=== PATIENT | female | born 1970 | race Caucasian/White ===

== ENCOUNTER → 2016-08-25 | Outpatient (CLI) | payer BC | END | disposition home or self-care (01) | LOC: LABWHC1 09:31 | PROVIDERS: ATTEND Family Medicine | DX: I10 Essential (primary) hypertension (principal) | CPT/HCPCS: 82384 ==

== ENCOUNTER → 2017-06-20 | Outpatient (CLI) | payer SELFPAY | END | disposition home or self-care (01) | LOC: MMGSC 12:26 | PROVIDERS: ATTEND Family Medicine | DX: E55.9 Vitamin D deficiency, unspecified (principal) | CPT/HCPCS: 36415; 82306 ==

== ENCOUNTER → 2018-07-13 | Outpatient (CLI) | payer BC ==
--- NOTE | 2018-07-13 16:31 | CONS ---
CONSULTATION DATE OF SERVICE: 07/13/2018 This patient is a 48-year-old lady who has been evaluated in the sleep center for significant excessive daytime sleepiness. Gary Sleepiness Scale is 15. HISTORY OF PRESENT ILLNESS/SLEEP-WAKE EVALUATION: Patient's usual sleep schedule is from 11 p.m. to 6 a.m., basically 7 days a week. No problems with falling asleep, although she has a TV set in the bedroom. She usually sleeps on the side position. According to the patient, she does not snore and she wakes up from sleep maybe once with nocturia. She feels significantly sleepy during the day. She wakes up tired, has problems with memory, concentration and anxiety. She takes naps several times during the day, and after naps she still feels tired and exhausted. No history of hypnagogic hallucinations, sleep paralysis or cataplexy. Usually no dreaming during the naps. Her past medical history is positive for Jam's thyroiditis, thyroidism, hypertension, Raynaud phenomenon, episodes of anxiety, fibromyalgia, occipital nerve damage, increasing weight by about 15 pounds for the last few years and about 30 pounds over the last 5 years. MEDICATIONS: 1. Levothyroxine. 2. Metoprolol. 3. Verapamil. SOCIAL HISTORY: Negative for smoking or using alcohol. FAMILY HISTORY: Positive for Clark syndrome in her mother, hyperlipidemia in her mother, lung and heart problems in her grandmother and grandfather. REVIEW OF SYSTEMS: Menstrual periods are regular. Sleepiness during the day. PHYSICAL EXAMINATION: GENERAL: A pleasant lady without distress. VITAL SIGNS: BP 108/79, HR 65, RR 16, height 5 feet 4 inches, weight 170.4 pounds, body mass index 29.1, temperature 98.4, oxygen saturation at room air 97%. HEENT: PERRLA, EOMI. Evaluation of oropharynx showed tongue protrudes midline. Retrognathia 3 mm. Extremely low position of soft palate. Mallampati III-IV. NECK: Supple. No JVD. Thyroid is not palpable. Neck is 14 inches in circumference. Thyroid slightly palpable. LUNGS: Clear to percussion and to auscultation. Good air exchange. No wheezing or rhonchi. HEART: S1, S2 regular. No murmurs, gallops or rubs. ABDOMEN: Soft and nontender. Bowel sounds are present. No organomegaly. EXTREMITIES: No clubbing or cyanosis. 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 Cranial nerves 2 to 7 intact. There is no fasciculation or atrophy. noted. No focal deficits observed. IMPRESSION: 1. Significant excessive daytime sleepiness. Gary Sleepiness Scale is 15. Patient takes naps several times during the day. Differential diagnosis includes narcolepsy without cataplexy. 2. Increasing weight for the last several years, extremely low position of soft palate, retrognathia; differential diagnosis includes obstructive sleep apnea, but no history of snoring or awakenings from sleep with choking and gasping for air. 3. Overweight; body mass index 29.1. 4. thyroidism. 5. Hypertension. 6. History of Raynaud phenomenon. 7. History of fibromyalgia. 8. History of anxiety. 9. Status post right knee arthroscopic surgery. 10.History of occipital nerve damage. PLAN: 1. Polysomnography for evaluation of patient's breathing during sleep. 2. CPAP/BiPAP titration if sleep study confirms obstructive sleep apnea-hypopnea syndrome. 3. Preferable position during sleep on the side. 4. No driving if patient feels any sleepiness. 5. I will see patient for follow up visit to explain results of testing and following plan. 6. Multiple sleep latency test for objective evaluation of patient's symptoms of excessive daytime sleepiness and to check for any sleep onset REM periods, possibility of narcolepsy if sleep study is negative for obstructive sleep apnea- hypopnea syndrome. Thank you very much for referring this patient for consultation. Sincerely, Hernando De La Cruz MD, PhD, FAASM Diplomat of [employer] [facility] MMODL / IJN: [id number] /
== END ==
LOC: SLEEP 13:56
PROVIDERS: ATTEND Internal Medicine
DX: G47.10 Hypersomnia, unspecified (principal); M26.19 Other specified anomalies of jaw-cranial base relationship; E66.3 Overweight; I10 Essential (primary) hypertension; I73.00 Raynaud's syndrome without gangrene; M79.7 Fibromyalgia; E06.3 Autoimmune thyroiditis; F41.9 Anxiety disorder, unspecified; Z98.890 Other specified postprocedural states; Z86.69 Personal history of other diseases of the nervous system and sense organs; Z99.89 Dependence on other enabling machines and devices; Z68.29 Body mass index [BMI] 29.0-29.9, adult; Z79.899 Other long term (current) drug therapy
CPT/HCPCS: 99211

== ENCOUNTER → 2022-04-09 | Outpatient (CLI) | payer BC ==
[2022-04-09 10:01] VITALS: BP 155/119; PULSE 88; RESP 16; TEMP 97.8
== END ==
LOC: WWCWWP 09:07
PROVIDERS: ATTEND Surgery
DX: N63.10 Unspecified lump in the right breast, unspecified quadrant (principal); Z77.120 Contact with and (suspected) exposure to mold (toxic); I10 Essential (primary) hypertension

== ENCOUNTER → 2022-04-09 | Outpatient (CLI) | payer BC ==
--- NOTE | 2022-04-09 09:52 | USB ---
Patient History: Menarche at age 12. First Full-Term at age 27. Hormonal Contraceptives for 1 year from age 18 until age 18. 02/15/2006, Benign Cyst Aspiration on the left side. Risk Values: Tiffany 5 year model risk: 1.1%. NCI Lifetime model risk: 9.7%. Technique: Method: Targeted. Prior Study Comparison: 07/18/2009 Bilateral Diagnostic Mammogram, [facility]. 07/22/2010 Bilateral Diagnostic Mammogram, [facility]. 07/01/2014 Bilateral Screening Mammogram, [facility]. Findings: The upper outer quadrant of the right breast, the axilla of the right breast and the retroareolar of the right breast were scanned. Targeted ultrasound right breast..Targeted ultrasound right breast.There is large thin-walled cyst measuring 3.3 x 2.8 x 3.3 cm at 11:00 position 5 cm distance from nipple. There are smaller adjacent thin-walled cysts slightly elongated in appearance after this. There is benign lymph node in the right axillary tail. Beginning of study at 9:00 position there is a 3 x 5 mm elongated thin-walled lesion possible thin-walled cyst though may have a feeding vessel. It is overall however too small to definitively characterize. Overall Assessment: Probably benign, BI-RAD 3 Management: Diagnostic Breast Ultrasound of the right breast in 6 months. Diagnostic Mammogram of both breasts. Advised bilateral diagnostic mammogram correlation now. No convincing ultrasound evidence for malignancy. Follow-up right breast ultrasound in 6 months time is advised. Results were given to the patient verbally at the time of exam. Electronically signed and approved by: Ralph Markham M.D.
--- NOTE | 2022-04-09 10:26 | P.GSHP ---
History of Present Illness H&P Date: 04/09/22 Chief Complaint: Mass right breast Ksenia is a 51-year-old white female seen in consultation for Dr. Kye Mendieta regarding a mass in her right breast. She has been able to feel this area for approximately 6 weeks. It has not changed in size. It is not painful. She has not had a mammogram for approximately 10 years. She did have a right breast ultrasound performed on [id number] which revealed approximately a 3 cm cystic lesion in the area where she feels a lump as well as approximately a 6 mm questionable cyst/lymph node for which 6 month surveillance has been recommended. She does not feel any other lumps masses or nodules of concern in either breast. She had an aspiration of her left breast in the remote past which was a cyst. She does not have any recent trauma or infection in her breast. She is not complaining of any nipple discharge or skin changes. Patient mass in her breast does not change with her menstrual cycle. Her last menstrual period was March 22. Caffeine: none nicotine: none chocolate: Small piece once a week BCP: 1 year at 15 hormones: none Family History: mother: melanoma on her face Hormonal History: menarche: 12 , breast fed: yes, age at first : 26 menopause: still has regular periods LMP: March 22. Surgical History: right knee arthroscopy Medical History: Hypertension Fibromyalgia Social History: nicotine: none alcohol: none drugs: none - Constitutional Constitutional: Denies chills, Denies fever - EENT Eyes: denies blurred vision, denies pain Ears: deny: decreased hearing, tinnitus Ears, nose, mouth and throat: Reports headache, Denies sore throat - Breasts Breasts: bilateral: as per HPI - Cardiovascular Cardiovascular: Denies chest pain, Denies shortness of breath - Respiratory Respiratory: Denies cough, Denies 7 - Gastrointestinal Gastrointestinal: Denies abdominal pain, Denies diarrhea, Denies nausea, Denies vomiting - Genitourinary (Female) Genitourinary: Denies dysuria, Denies hematuria - Menstruation Menstruation: Reports period normal - Musculoskeletal Comment: fibromyalgia - Integumentary Integumentary: Denies pruritus, Denies rash - Neurological Neurological: Denies numbness, Denies weakness - Psychiatric Psychiatric: Denies anxiety, Denies depression - Endocrine Endocrine: Reports fatigue, Denies weight change - Hematologic/Lymphatic Comment: none - Allergic/Immunologic Allergic/Immunologic: Reports as per HPI Past Medical History Past Medical History: Hypertension History of Any Multi-Drug Resistant Organisms: None Reported Additional Past Surgical History / Comment(s): orthroscopy rt knee Past Psychological History: Anxiety Past Alcohol Use History: None Reported Past Drug Use History: None Reported Medications and Allergies Home Medications Medication Instructions Recorded Confirmed Type Magnesium 200 mg PO DAILY 04/09/22 04/09/22 History Metoprolol Tartrate 25 mg PO DAILY PRN 04/09/22 04/09/22 History Multivitamin [Multivitamins Adult 1 each PO DAILY 04/09/22 04/09/22 History Gummies] Allergies Allergy/AdvReac Type Severity Reaction Status Date / Time mold Allergy Rash/Hives Verified 04/09/22 09:56 Surgical - Exam - General no distress - Eyes normal ocular movement - ENT no hearing loss - Neck trachea midline - Respiratory normal respiratory effort - Cardiovascular Rhythm: regular Heart Sounds: normal: S1, S2 - Abdomen Abdomen: soft, non tender, no guarding, no rigid, no rebound - Integumentary normal turgor - Neurologic no disoriented, no combative - Musculoskeletal normal gait, normal posture - Psychiatric oriented to time, oriented to person, oriented to place, speech is normal, memory intact Breast Exam: BRA: 38DDD inspection: bilateral grade 3 ptosis palpation: right breast: multipositional exam area of nodularity approximately 3 cm in size at 11 o'clock position, no other dominant masses or nodules of concern Right axilla: No adenopathy of concern Left breast: Multiple positional exam fibrocystic changes no dominant masses or nodules of concern Left axilla: No adenopathy of concern Fungal infection under both breast Results Mammogram has not been done for approximately 10 years, ultrasound of the right breast performed today and reviewed with Assessment and Plan Assessment: Impression: Fibrocystic breast changes Cystic lesion 11 o'clock position right breast palpable as well as seen on ultrasound Fungal infection under both breast Plan: Right breast cyst aspiration Nystatin Bilateral mammogram Follow up after bilateral mammograms Cc: Dr. Patel
== END | disposition home or self-care (01) ==
LOC: RADUSWWP 09:04
PROVIDERS: ATTEND Surgery
DX: N63.10 Unspecified lump in the right breast, unspecified quadrant (principal); I10 Essential (primary) hypertension; M79.7 Fibromyalgia; N60.01 Solitary cyst of right breast